=== PATIENT | female | born 1945 | race Two or more races ===

== ENCOUNTER 2024-08-08 16:57 | Emergency (ER) | payer MEDICARE, OTHER ==
[~2024-08-08] VITALS: Ht 165.1 cm; Wt 65.0 kg
[2024-08-08 17:01] VITALS: O2SAT 98
[2024-08-08] MEDS: KETOROLAC 15MG/ML VIAL IM ONE (19:40)
[2024-08-08 20:44] LABS: CHLORIDE 103 mEq/L (98-107); POTASSIUM 5.2 mEq/L (3.5-5.1); SODIUM 133 mEq/L (136-145)
[2024-08-08 20:47] LABS: CARBON DIOXIDE 20 mEq/L (21-32)
[2024-08-08 20:50] LABS: CREATININE 1.4 mg/dL (0.6-1.0); GLUCOSE 248 mg/dL (70-105); UREA NITROGEN BLOOD 14 mg/dL (9-23)
[2024-08-08 20:51] LABS: ALANINE AMINOTRANSFERASE 18 IU/L (10-49); ALBUMIN 3.9 g/dL (3.2-4.8)
[2024-08-08 20:52] LABS: ASPARTATE AMINOTRANSFERASE 38 IU/L (<34); BILIRUBIN TOTAL 0.4 mg/dL (0.1-1.0); PROTEIN TOTAL 7.3 g/dL (6.0-8.3)
[2024-08-08 21:09] LABS: BASOPHILS % 0.5 % (0.0-2.0); EOSINOPHILS % 0.6 % (0.0-5.0); HEMATOCRIT. 41.6 % (36.0-48.0); HEMOGLOBIN. 14.4 g/dL (12.0-16.0); LYMPHOCYTES % 11.8 % (20.0-50.0); MEAN CORPUSCULAR HEMOGLOBIN 32.2 pg (28.0-32.0); MEAN CORPUSCULAR HGB CONC 34.6 g/dL (31.0-37.0); MEAN PLATELET VOLUME 8.2 fl (7.4-10.4); MONOCYTES % 3.2 % (2.0-8.0); NEUTROPHILS % 83.9 % (40.0-76.0); PLATELET 242 x1000/uL (130-400); RED BLOOD CELL COUNT 4.47 mill/uL (4.2-5.4); WHITE BLOOD COUNT 8.4 x1000/uL (4.5-11.0)
[2024-08-09] MEDS ORDERED: DEXTROSE 50% WATER 50ML SYRINGE IV PRN (01:30)
[2024-08-09] MEDS ORDERED: MORPHINE SULFATE 2 MG/ML INJ (NOT FOR IM USE) IV PRN (01:30)
[2024-08-09] MEDS ORDERED: DIPHENHYDRAMINE 50MG/ML VIAL IV PRN (01:30)
[2024-08-09] MEDS ORDERED: KETOROLAC 30MG/ML VIAL IV PRN (01:30)
[2024-08-09] MEDS ORDERED: SODIUM CHLORIDE 0.9% 1,000 ML IV SCH (01:30)
[2024-08-09] MEDS ORDERED: ONDANSETRON HCL 4MG/2ML INJ IV PRN (01:30)
[2024-08-09 03:39] VITALS: BP 164/85; PULSE 87; RESP 16; TEMP 37.00296; O2SAT 100
[2024-08-09] MEDS ORDERED: INSULIN LISPRO 100 UNITS/ML SUBCUT SCH (08:20)
[2024-08-09] MEDS ORDERED: PANTOPRAZOLE SODIUM 40 MG/VIAL IV SCH (09:00)
[2024-08-09] MEDS ORDERED: ENOXAPARIN 30MG/0.3ML SYR SUBCUT SCH (09:00)
[2024-08-09] MEDS ORDERED: BLOOD SUGAR DIAGNOSTIC STRIP TEST SCH (09:00)
== END 2024-08-09 03:45 | disposition short-term general hospital (02) ==
LOC: ER 16:57
DX: S72.91XA Unspecified fracture of right femur, initial encounter for closed fracture (principal); I10 Essential (primary) hypertension; E11.9 Type 2 diabetes mellitus without complications; I25.2 Old myocardial infarction; V79.59XA Passenger on bus injured in collision with other motor vehicles in traffic accident, initial encounter; Y93.89 Activity, other specified; Y92.89 Other specified places as the place of occurrence of the external cause; Y99.8 Other external cause status
CPT/HCPCS: 80053; 83036; 85025; 36415; 73503; 73552; 73560; 73590; 96372; 99285; J1885; Z7610